=== PATIENT | female | born 1955 | race Two or more races ===

== ENCOUNTER → 2020-04-23 | Outpatient (CLI) | payer OTHER ==
[~2020-04-23] MED LIST: CHOL10003 PO; CYAN25003 PO; LISI5TAB7 PO; METH5TAB6 PO; METO-93 PO; PYRI100T9 PO
[2020-04-23 16:25] LABS: ALANINE AMINOTRANSFERASE 26 U/L (12-78); ANION GAP 5 mmol/L (5-15); CALCIUM 8.8 mg/dL (8.5-10.1); CHLORIDE 110 mmol/L (98-107); CREATININE 0.78 mg/dL (0.55-1.02)
[2020-04-23 16:28] LABS: ALKALINE PHOSPHATASE 103 U/L (45-117); BILIRUBIN,TOTAL 0.2 mg/dL (0.2-1.0); TOTAL PROTEIN 7.9 g/dL (6.4-8.2)
== END | disposition home or self-care (01) ==
LOC: STAR 15:14
PROVIDERS: ATTEND Family Medicine
DX: Z01.812 Encounter for preprocedural laboratory examination (principal); Z20.828 Contact with and (suspected) exposure to other viral communicable diseases
CPT/HCPCS: 80053; 87635; 93005

== ENCOUNTER 2020-04-29 07:12 | Inpatient (IN) | payer OTHER ==
[~2020-04-29] VITALS: Ht 167.6 cm; Wt 78.0 kg
[2020-04-29] MEDS ORDERED: CHLORHEXIDINE 15 ML UDC MM STA (07:45)
[2020-04-29] MEDS ORDERED: MIDAZOLAM 1 MG/ML, 2ML ONE (07:57)
[2020-04-29] MEDS ORDERED: FENTANYL PF 250 MCG/5ML ONE (07:58)
[2020-04-29] MEDS ORDERED: LACTATED RINGERS 1,000 ML IV SCH ×2 (08:00→13:30)
[2020-04-29] MEDS ORDERED: GLYCOPYRROLATE 0.2MG/1ML, 5ML ONE (08:01)
[2020-04-29] MEDS ORDERED: NEOSTIGMINE 1 MG/ML, 10ML ONE (08:01)
[2020-04-29] MEDS ORDERED: ROCURONIUM 10MG/ML,5ML ONE (08:01)
[2020-04-29] MEDS ORDERED: PROPOFOL 10 MG/ML, 20ML ONE (08:01)
[2020-04-29] MEDS ORDERED: ONDANSETRON 2MG/ML, 2ML ONE (08:01)
[2020-04-29] MEDS ORDERED: CEFAZOLIN 1,000 MG ONE (08:01)
[2020-04-29] MEDS ORDERED: HYDROmorphone 1 MG/ML, 1ML INJ IVPush PRN (10:00)
[2020-04-29] MEDS ORDERED: hydrALAzine 20 MG/ML, 1ML IV PRN (10:00)
[2020-04-29] MEDS ORDERED: LABETALOL 5MG/ML, 20ML IV PRN (10:00)
[2020-04-29] MEDS ORDERED: morphine SULFATE 10 MG/ML, 1ML IVPush PRN (10:00)
[2020-04-29] MEDS ORDERED: PROMETHAZINE 25 MG/ML, 1ML IVPush PRN (10:00)
[2020-04-29] MEDS ORDERED: HALOPERIDOL 5 MG/ML IV PRN (10:00)
[2020-04-29] MEDS ORDERED: MEPERIDINE/PF 25MG/0.5ML IVPush PRN (10:00)
[2020-04-29] MEDS ORDERED: OXYcodone 5 MG/5 ML ORAL.SOL UDC PO PRN (10:00)
[2020-04-29] MEDS ORDERED: ACETAMINOPHEN 325 MG TABLET PO PRN (10:00)
[2020-04-29] MEDS: FENTANYL PF 100 MCG/2ML IV PRN ×2 (11:42→12:05)
[2020-04-29] MEDS ORDERED: FENTANYL PF 100 MCG/2ML ONE (11:52)
[2020-04-29] MEDS ORDERED: OXYcodone 5 MG/5 ML ORAL.SOL UDC ONE (11:52)
[2020-04-29] MEDS ORDERED: hydrALAzine 20 MG/ML, 1ML ONE (11:52)
[2020-04-29 12:20] LABS: ALBUMIN 3.8 g/dL (3.4-5.0); CALCIUM 8.2 mg/dL (8.5-10.1)
[2020-04-29] MEDS ORDERED: MORPHINE SULFATE 4 MG/ML, 1ML ONE (12:39)
[2020-04-29] MEDS ORDERED: morphine SULFATE 10 MG/ML, 1ML IV PRN (13:30)
[2020-04-29] MEDS ORDERED: ONDANSETRON 2MG/ML, 2ML IV PRN (13:30)
[2020-04-29] MEDS ORDERED: HYDROcodone/APAP 5/325 TABLET PO PRN (13:30)
[2020-04-29 15:08] VITALS: BP 149/80
[2020-04-29 16:33] LABS: ALBUMIN 4.1 g/dL (3.4-5.0); CALCIUM 8.4 mg/dL (8.5-10.1)
[2020-04-29] MEDS ORDERED: CALCIUM CARBONATE 500 MG TAB.CHEW PO SCH (17:00)
[2020-04-29 18:07] LABS: ALBUMIN 3.9 g/dL (3.4-5.0); CALCIUM 8.4 mg/dL (8.5-10.1)
[2020-04-29] MEDS ORDERED: HYDR-3237 PO (18:35)
[2020-04-29] MEDS ORDERED: CALC200T3 PO (18:36)
[2020-04-29 19:29] VITALS: BP 155/78
[2020-04-30] MEDS ORDERED: METOPROLOL SUCCINATE 50 MG TAB.ER.24H PO SCH (06:00)
[2020-04-30] MEDS ORDERED: LISINOPRIL 5 MG TABLET PO SCH (09:00)
[2020-04-30] MEDS ORDERED: CYANOCOBALAMIN 1,000 MCG TABLET PO SCH (09:00)
[2020-04-30] MEDS ORDERED: PYRIDOXINE (VITAMIN B6) 100 MG TAB PO SCH (09:00)
== END 2020-04-29 19:45 | disposition home or self-care (01) | DRG 627 ==
LOC: OUT 07:12 → 4NE 13:06 → OUT 13:11
PROVIDERS: ADMIT Surgery; ATTEND Surgery
PROC: 4A1104Z Monitoring of Peripheral Nervous Electrical Activity, Open Approach (ICD-10-PCS; 2020-04-29)
PROC: 0GTK0ZZ Resection of Thyroid Gland, Open Approach (ICD-10-PCS; principal; 2020-04-29 09:30)
DX: E05.20 Thyrotoxicosis with toxic multinodular goiter without thyrotoxic crisis or storm (principal); I10 Essential (primary) hypertension; D50.9 Iron deficiency anemia, unspecified; Z79.899 Other long term (current) drug therapy; Z79.891 Long term (current) use of opiate analgesic; Z72.89 Other problems related to lifestyle; Z82.49 Family history of ischemic heart disease and other diseases of the circulatory system
CPT/HCPCS: 36415; 82040; 82310; 88307; G0378; J0690; J2250; J2405; J2704; J2710; J3010; C1760; J0360; J2270